=== PATIENT | female | born 1935 | race Caucasian/White ===

== ENCOUNTER 2023-09-07 13:26 | Outpatient (REF) | payer MEDICARE, OTHER, SELFPAY ==
[2023-09-07 15:08] LABS: Anion Gap 13 (12-20); Blood Urea Nitrogen 27 mg/dL (9-16); Calcium 9.4 mg/dL (8.4-10.2); Carbon Dioxide 26 mmol/L (22-29); Chloride 108 mmol/L (96-108); Estimated Glomerular Filt Rate 54; Glucose Random 100 mg/dL (60-115); Potassium 4.4 mmol/L (3.3-5.1); Sodium 143 mmol/L (135-145)
[2023-09-07 15:14] LABS: B Type Natriuretic Peptide 359 pg/mL (<100)
== END 2023-09-07 13:27 | disposition home or self-care (01) ==
LOC: HO.LAB 13:26
PROVIDERS: PCP Internal Medicine; Visit Provider Internal Medicine Cardiovascular Disease
DX: I48.0 Paroxysmal atrial fibrillation (principal)
CPT/HCPCS: 36415; 80048; 83880; 99212

== ENCOUNTER 2023-11-29 12:59 | Outpatient (REF) | payer MEDICARE, OTHER, SELFPAY ==
[2023-11-29 15:26] LABS: Appearance Urine Turbid; Color Urine Dark Yellow; Glucose Urine UA Negative (Negative); Leukocyte Esterase Urine Large (3+) (Negative); Nitrite Urine Positive (Negative); PH >= 9.0 (5.0-9.0); UMIC TRIGGER UA YES; Urine Blood Negative (Negative); Urine Ketones Negative (Negative); Urine Protein 100 (2+) mg/dL (Neg-Trace)
[2023-11-29 16:56] LABS: Bacteria Urine 4+ (None Seen); Calcium Oxalate Crystals Urine Present; Hyaline Casts Urine >20 /LPF (0-2); RBC Urine 0-2 /HPF (0-2); Squamous Epithelial Cell Urine 0-2 /HPF (0-2); WBC Urine >50 /HPF (0-5)
== END 2023-11-29 13:00 | disposition home or self-care (01) ==
LOC: HO.LAB 12:59
PROVIDERS: PCP Internal Medicine; Visit Provider Internal Medicine
DX: R30.0 Dysuria (principal); R82.79 Other abnormal findings on microbiological examination of urine
CPT/HCPCS: 81001; 87086; 87088; 87186

== ENCOUNTER 2023-12-23 14:00 | Outpatient (RCR) | payer MEDICARE, OTHER, SELFPAY | END 2023-12-23 16:42 | disposition home or self-care (01) | LOC: HO.PT 14:00 | PROVIDERS: PCP Internal Medicine; Visit Provider Orthopaedic Surgery | DX: Z96.642 Presence of left artificial hip joint (principal) | CPT/HCPCS: 97110; 97112; 97116; 97162; 97530 ==

== ENCOUNTER 2023-12-31 07:53 | Outpatient (REF) | payer MEDICARE, OTHER, SELFPAY ==
[2023-12-31 08:06] LABS: MANUAL DIFF FLAG NO
[2023-12-31 08:18] LABS: Basophils Absolute Auto 0.1 X10*3/uL (0.0-0.2); Basophils Percent Auto 1.4 % (0-2); Eosinophils Absolute Auto 0.3 X10*3/uL (0.0-0.4); Eosinophils Percent Auto 7.1 % (0-4); Hematocrit 37.6 % (37.0-47.0); Hemoglobin 11.8 g/dl (12.0-16.0); Imm Gran Abs Auto 0.01 X10*3/uL (0.00-0.03); Imm Gran Pct Auto 0.2 % (0.0-0.4); Lymphocytes Absolute Auto 1.1 X10*3/uL (1.2-4.9); Lymphocytes Percent Auto 24.7 % (20-40); Mean Corpuscular HGB Conc 31.4 g/dl (31.0-35.0); Mean Corpuscular Hemoglobin 29.2 pg (27.0-33.0); Mean Corpuscular Volume 93.1 fL (80.0-98.0); Mean Platelet Volume 11.1 fL (9.4-12.3); Monocytes Absolute Auto 0.4 X10*3/uL (0.1-1.2); Monocytes Percent Auto 9.4 % (2-11); Neutrophils Absolute Auto 2.5 x10*3/uL (2.0-8.3); Neutrophils Percent Auto 57.2 % (45-73); Platelet Count 165 X10*3/uL (160-400); Red Blood Count 4.04 X10*6/uL (4.20-5.50); Red Cell Distribution Width 14.1 % (11.0-16.0); White Blood Count 4.4 X10*3/uL (4.8-10.8)
[2023-12-31 08:36] LABS: Estimated Average Glucose 105 mg/dL; Hemoglobin A1c % 5.3 % (<6.0)
[2023-12-31 09:05] LABS: Alanine Aminotransferase 13 U/L (0-31); Alkaline Phosphatase 99 U/L (39-117); Anion Gap 12 (12-20); Aspartate Amino Transferase 17 U/L (5-31); Bilirubin Total 0.6 mg/dL (0.0-1.0); Blood Urea Nitrogen 22 mg/dL (9-16); Calcium 9.5 mg/dL (8.4-10.2); Carbon Dioxide 27 mmol/L (22-29); Chloride 109 mmol/L (96-108); Cholesterol 179 mg/dL (<200); Estimated Glomerular Filt Rate 59; Glucose Random 90 mg/dL (60-115); HDL Cholesterol 66 mg/dL (>40); LDL Cholesterol Calculated 99 mg/dL (<100); Potassium 3.8 mmol/L (3.3-5.1); Sodium 144 mmol/L (135-145); Total Protein 6.7 g/dL (6.5-8.0); Triglycerides 72 mg/dL (<150)
[2023-12-31 09:21] LABS: TSH reflex Free T4 4.41 uIU/mL (0.32-4.0)
[2023-12-31 10:28] LABS: Free T4 (Free Thyroxine) 0.99 ng/dL (0.71-1.85)
== END 2023-12-31 07:54 | disposition home or self-care (01) ==
LOC: HO.LAB 07:53
PROVIDERS: PCP Internal Medicine; Visit Provider Internal Medicine
DX: E78.00 Pure hypercholesterolemia, unspecified (principal); I10 Essential (primary) hypertension; R73.01 Impaired fasting glucose
CPT/HCPCS: 36415; 80053; 80061; 83036; 84439; 84443; 85025

== ENCOUNTER 2024-01-10 03:33 | Emergency (ER) | payer MEDICARE, OTHER, SELFPAY ==
[2024-01-10 03:42] VITALS: BP 180/76; BP 199/73; PULSE 60; RESP 16; O2SAT 96; O2SAT 99; BMI 30.3
--- NOTE | 2024-01-10 04:36 | ED.WOUNDLAC ---
HPI - Wound/Laceration General Chief Complaint: Wound/Laceration Stated Complaint: discharge from left scott lac Time Seen by Provider: 01/10/24 04:35 Source: patient Mode of arrival: ambulatory Limitations: no limitations History of Present Illness ED Provider: lamont CARTER narrative: Patient apparently got superficial skin avulsion of the left scott 2 days ago from the car door does have chronic leg edema and from the avulsion area clear fluid is leaking Related Data Home Medications ?Medication ?Instructions ?Recorded ?Confirmed amlodipine 5 mg tablet 5 mg PO DAILY 03/07/21 09/07/23 atorvastatin 10 mg tablet 10 mg PO DAILY 03/07/21 09/07/23 allopurinol 100 mg tablet 100 mg PO DAILY 02/11/22 09/07/23 terazosin 2 mg capsule 2 mg PO BEDTIME 03/30/22 09/07/23 cholecalciferol (vitamin D3) 50 50 mcg PO DAILY 11/11/22 09/07/23 mcg (2,000 unit) tablet (Vitamin D3) mirabegron 25 mg tablet,extended 25 mg PO DAILY 11/11/22 09/07/23 release 24 hr (Myrbetriq) furosemide 20 mg tablet 20 mg PO ONCE PRN edema 12/30/22 09/07/23 metoprolol tartrate 50 mg tablet 50 mg PO BID 04/08/23 09/07/23 mirabegron 50 mg tablet,extended 50 mg PO DAILY 04/08/23 09/07/23 release 24 hr (Myrbetriq) Previous Rx's ?Medication ?Instructions ?Recorded apixaban 5 mg tablet (Eliquis) 5 mg PO BID #60 tabs 10/18/23 Allergies Allergy/AdvReac Type Severity Reaction Status Date / Time adhesive [ADHESIVE] Allergy Mild RASH Verified 01/10/24 03:46 lisinopril [LISINOPRIL] Allergy Unknown TONGUE Verified 01/10/24 03:46 SWELLING Sulfa (Sulfonamide Allergy hives Verified 01/10/24 03:46 Antibiotics) ROMULO Inhibitors AdvReac Unknown angioedema Verified 01/10/24 03:46 [ROMULO INHIBITORS] From DEMEROL Allergy Unknown STOMACH Uncoded 01/10/24 03:46 UPSET Review of Systems Review of Systems: Yes all other systems are reviewed and are negative PMFSH Past Medical History Medical History (HFpEF) heart failure with preserved ejection fraction Paroxysmal atrial fibrillation Persistent atrial fibrillation Left leg swelling Dysuria Bladder prolapse, female, acquired Overflow incontinence of urine Urine retention Gout Breast cancer Hypertension Surgical History History of total bilateral knee replacement (TKR) History of tonsillectomy and adenoidectomy Hx of appendectomy History of lumpectomy of right breast Hx of vaginal surgery History of hip surgery Social History Social History Alcohol intake: current Alcohol intake frequency: holidays/special occasions only Patient Tobacco Use Status: Never used Tobacco Advance Directives: No Advance Directives Information Provided: Yes Do you have a plan to hurt others: No Plan Physical Exam Vital Signs: Vital Signs: Last Vital Signs Pulse 60 01/10/24 03:42 Resp 16 01/10/24 03:42 BP 199/73 H 01/10/24 03:42 Pulse Ox 99 01/10/24 03:42 O2 Del Method Room Air 01/10/24 03:42 BMI result Body Mass Index 30.3 Appearance: Alert. Oriented X3. No acute distress. ENT: Pharynx normal. Oral Mucosa moist Neck: Normal inspection. Neck supple. CVS: Normal heart rate and rhythm. Pulses normal. Respiratory: No respiratory distress. Equal air entry bilateral, no wheezing/rales/rhonchi Abdomen: Soft and nontender. Skin: Skin warm and dry. Normal skin color. Normal skin turgor. Superficial skin tear left scott no signs of infection slight serous fluid leakage Extremities: 1+ lower extremity edema. No calf tenderness Neuro: Oriented X 3. Medical Decision Making Medical Decision Making MDM Narrative: Skin avulsion was cleaned Steri-Strips and skin glue was applied with pressure dressing with fair approximation Procedures Laceration Laceration 1: Site: lower extremity Side (If applicable): left Size (cm): 3 Description: flap Depth: simple, single layer Skin layer closed with: other (Steri-Strips and skin glue) Discharge Plan Discharge Clinical Impression: Avulsion of skin Patient Disposition: Home, Self-Care Instructions: Skin Tear (ED) Additional Instructions: Local care as advised Keep leg elevated Have compression dressing until heals completely Follow with your PCP Prescriptions: No Action furosemide 20 mg tablet 20 mg PO ONCE PRN (Reason: edema) Eliquis 5 mg tablet 5 mg PO BID Qty: 60 5RF cholecalciferol (vitamin D3) [Vitamin D3] 50 mcg (2,000 unit) Tablet 50 mcg PO DAILY Myrbetriq 25 mg tablet extended release 24 hr 25 mg PO DAILY allopurinol 100 mg tablet 100 mg PO DAILY terazosin 2 mg capsule 2 mg PO BEDTIME metoprolol tartrate 50 mg tablet 50 mg PO BID Myrbetriq 50 mg tablet extended release 24 hr 50 mg PO DAILY amlodipine 5 mg tablet 5 mg PO DAILY atorvastatin 10 mg tablet 10 mg PO DAILY Print Language: Tamazight
--- NOTE | 2024-01-10 06:05 | PC.NURSE ---
pt has no way home, state she could pay for a taxi, none at this time. Pt is going to wait to take the hospital shuttle.
[2024-01-10 06:19] VITALS: BP 183/65; PULSE 68; RESP 18; TEMP 36.8; O2SAT 99
--- NOTE | 2024-01-10 07:01 | PC.NURSE ---
report given to Alida MAXWELL
== END 2024-01-10 07:34 | disposition home or self-care (01) ==
PROVIDERS: Emergency Provider Internal Medicine
DX: S81.812A Laceration without foreign body, left lower leg, initial encounter (principal); X58.XXXA Exposure to other specified factors, initial encounter; Y93.89 Activity, other specified; Y92.810 Car as the place of occurrence of the external cause; Y99.8 Other external cause status
CPT/HCPCS: 99282; 99284

== ENCOUNTER 2024-02-16 15:18 | Outpatient (REF) | payer MEDICARE, OTHER, SELFPAY ==
[2024-02-16 16:50] LABS: Appearance Urine Turbid; Color Urine Yellow; Glucose Urine UA Negative (Negative); Leukocyte Esterase Urine Large (3+) (Negative); Nitrite Urine Positive (Negative); Specific Gravity - Urine 1.025 (1.005-1.025); UMIC TRIGGER UA YES; Urine Blood Negative (Negative); Urine Ketones Negative (Negative); Urine Protein 30 (1+) mg/dL (Neg-Trace)
[2024-02-16 17:00] LABS: Bacteria Urine 4+ (None Seen); RBC Urine 0-2 /HPF (0-2); WBC Urine >50 /HPF (0-5)
== END 2024-02-16 15:19 | disposition home or self-care (01) ==
LOC: HO.LAB 15:18
PROVIDERS: PCP Internal Medicine; Visit Provider Internal Medicine
DX: R30.0 Dysuria (principal); R35.0 Frequency of micturition
CPT/HCPCS: 81001; 87086; 87088; 87186

== ENCOUNTER 2024-02-22 14:00 | Outpatient (RCR) | payer MEDICARE, OTHER, SELFPAY | END 2024-02-23 08:22 | disposition home or self-care (01) | LOC: HO.PT 14:00 | PROVIDERS: PCP Internal Medicine; Visit Provider Internal Medicine | DX: M25.512 Pain in left shoulder (principal) | CPT/HCPCS: 97110; 97140; 97161 ==

== ENCOUNTER → 2024-03-09 08:32 | Outpatient (REF) | payer MEDICARE, OTHER, SELFPAY ==
--- NOTE | 2024-03-09 08:35 | CA_ITS ---
Transthoracic Echocardiogram Patient (Last, First, Middle): Argelia Bradshaw C Gender: Female Date of : 1935 Age: 88 Procedure Date: 03/09/2024 Procedure Type: Transthoracic Echocardiogram Location: OP Height: 165. cm Weight: 72.58 kg BSA: 1.80 m2 Heart Rate: 63 bpm BP: 176 / 65 mmHg Prevocational/Rehabilitation Counselor: HEAVEN Referring MD: Zain Tripp MD [employer]ident Responder: Zain Tripp MD Symptoms: I50.30 - Unspecified diastolic (congestive) heart failure Study Quality: Adequate ECG Rhythm: Sinus Conclusions: - 1. Normal LV ejection fraction of 60 65% with elevated filling pressures 2. Mildly dilated left atrium 3. Cardiac valvular Dopplers within normal limits 4. Normal RV systolic pressure 5. Upper limits of normal ascending aortic size 6. No pericardial effusion Findings Left Ventricle Normal left ventricular size, thickness, and systolic function. The visually estimated ejection fraction is between 60-65%. Spectral Doppler is indicative of an impaired relaxation filling pattern. E/E prime ratio is >15, consistent with elevated filling pressures.Peak GLS is -20.6%, within normal limits. Right Ventricle Normal right ventricular cavity size and systolic function. Atria The left atrium is mildly dilated. There is lipomatous hypertrophy of the interatrial septum. There is no evidence of interatrial shunt. The right atrium is normal in size. Aortic Valve Normal aortic valve structure and function. There is no aortic valve stenosis. There is no aortic valve regurgitation. Mitral Valve Normal mitral valve structure and function. There is trace mitral valve regurgitation. There is no mitral valve stenosis. Pulmonic Valve The pulmonic valve is likely normal. Tricuspid Valve Normal tricuspid valve structure. There is trace tricuspid valve regurgitation. The right ventricular systolic pressure is normal. The right ventricular systolic pressure is 17 mmHg. Normal right atrial pressure. There is no evidence of pulmonary hypertension. Great Vessels All visible segments of the aorta are normal in size. The pulmonary artery was not well visualized. There is no dilatation of the ascending aorta measuring 3.60 cm. Venous The inferior vena cava is normal in size and collapses greater than 50% with inspiration. Pericardium/Pleural There is no evidence of pericardial effusion. Prior Study Comparison No significant change compared to prior study dated: 01/08/2023. Measurements 2D Linear Measurements IVSd: 1.10 0.6-0.9/0.6-1.0 cm LVIDd: 4.79 3.9-5.3/4.2-5.9 cm LVIDd Index: 2.66 2.4-3.2/2.2-3.1 cm/m2 LVIDs: 2.94 2.0-3.6 cm LVPWd: 1.14 0.7-1.1 cm LA Diam: 4.40 2.7-3.8/3.0-4.0 cm LAIDs Index: 2.44 1.5-2.3 cm/m2 LV Mass: 247.03 67-162/88-224 g LV Mass Index: 137.24 43-95/49-115 g/m2 LVOT Diam: 1.90 3.0+(-)1.3 cm 2D Systolic Function EF 4C: 56.80 >55% EF 2C: 68.00 >55% EF BiP: 63.10 >55% Mitral Valve MV Pk E: 1.20 MV PK A: 1.20 MV Decel Time: 179.00 E/A: 1.00 E'Lateral: 6.64 E'Medial: 6.09 E/E' Med: 19.70 E/E' Lat: 18.10 PHT: 53.00 MVA PHT: 4.15 Decel Saline: 6.69 Aortic Valve AoV Pk Bret: 1.34 AoV Mn Bret: 0.98 AoV VTI: 0.39 AoV Pk Grad: 7.00 Aov Mn Grad: 4.00 ANASTASIA Cont.VTI: 2.21 LVOT LVOT Pk Bret: 1.09 LVOT Mn Bret: 0.75 LVOT VTI: 0.30 LVOT Pk Grad: 5.00 LVOT Mn Grad: 3.00 LVOT Diam: 1.90 LVOT Area: 2.84 Diastolic Function MV Pk E: 1.20 MV Pk A: 1.20 E/A: 1.00 E'Medial: 6.09 E/E' Med: 19.70 E' Laterial: 6.64 E/E' Lat: 18.10 Right Ventricle TAPSE (mm): 22.10 TVS' Bret: 9.79 Tricuspid Valve TR Pk Bret: 1.88 TR Pk Grad: 14.00 RA Press: 3.00 RVSP: 17.00 Great Vessels Aorta Sinus of Valsalva: 3.30 2.0-3.5 cm Ao Asc: 3.60 2.1-3.4 cm Pulmonary Valve PV Pk Bret: 0.95 Peak PV Grad: 4.00 Updated in Other Vendor System with Status of Final Zain Tripp MD electronically signed on 03/09/2024 12:02:52 PM with status of Final
== END ==
LOC: HO.CARD 08:32
PROVIDERS: PCP Internal Medicine; Visit Provider Internal Medicine Cardiovascular Disease
DX: I50.30 Unspecified diastolic (congestive) heart failure (principal)
CPT/HCPCS: 93306; 93356

== ENCOUNTER → 2024-03-09 08:35 | Outpatient (BNV) | payer MEDICARE, OTHER, SELFPAY | PROVIDERS: PCP Internal Medicine; Visit Provider Internal Medicine Cardiovascular Disease | DX: I50.30 Unspecified diastolic (congestive) heart failure (principal) | CPT/HCPCS: 93306; 93356 ==